=== PATIENT | female | born 1970 | race Caucasian/White ===

== ENCOUNTER 2021-05-19 18:39 | Emergency (ER) | payer OTHER, SELFPAY ==
--- NOTE | ~2021-05-19 | XR_ITS ---
EXAMINATION: XR knee LT min 4V EXAM DATE: 05/19/2021 19:17 INDICATION: Missed Step 05/19/21. Ant Knee Pain Since. TECHNIQUE: Left knee frontal, crosstable lateral, orthogonal oblique projections for interpretation. Additional sunrise projection. FINDINGS: There is a small left knee joint effusion. There are no acute fractures identified. There i s moderate medial tibiofemoral compartment primary osteoarthritis, less at the other compartments. IMPRESSION: 1. Small left knee joint effusion. 2. Osteoarthritis Reviewed, dictated and finalized at location G.
--- NOTE | ~2021-05-19 | XR_ITS ---
EXAMINATION: XR ankle LT min 3V EXAM DATE: 05/19/2021 19:18 INDICATION: Missed Step 05/19/21. Rolled. Ant Pain. TECHNIQUE: Left ankle frontal, lateral and oblique projections obtained and reviewed. There is no pr ior study for comparison. FINDINGS: The left ankle mortise appears intact. There are no acute fractures or dislocations ident ified. There is no subcutaneous gas. The soft tissue is unremarkable. There are no radiopaque for eign bodies. IMPRESSION: 1. XR ankle LT min 3V exam without acute osseous findings. Reviewed, dictated and finalized at location G.
[2021-05-19 18:46] VITALS: BP 129/79; PULSE 90; RESP 20; TEMP 37.1; O2SAT 99
--- NOTE | 2021-05-19 18:56 | ED.LOWEXIN ---
HPI - Extremity Injury (Lower) General Chief Complaint: Extremity Injury, Lower Stated Complaint: left knee and foot injury Time Seen by Provider: 05/19/21 18:56 Source: patient, family and RN notes reviewed History of Present Illness HPI Narrative: Patient is a 50-year-old female who presents the urgent care with complaints of left knee and left ankle pain. 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 Patient states that she rolled the left ankle and left knee but does not believe she hit the ground. States that she has been icing, elevating and using Tylenol for her pain. Patient states that this is a Workmen's Comp. related injury. No other acute complaints. No acute distress noted. Patient aware of the plan of care. Some parts of this dictation were generated by voice recognition software and may contain typographical and/or grammatical inaccuracies. Related Data Home Medications Medication Instructions Recorded Confirmed cetirizine 10 mg PO DAILY 05/19/21 05/19/21 empagliflozin [Jardiance] 25 mg PO DAILY 05/19/21 05/19/21 glipizide 5 mg PO DAILY 05/19/21 05/19/21 hydrochlorothiazide 25 mg PO DAILY 05/19/21 05/19/21 lisinopril 10 mg PO DAILY 05/19/21 05/19/21 metformin 1,000 mg PO DAILY 05/19/21 05/19/21 pravastatin 40 mg PO DAILY 05/19/21 05/19/21 sitagliptin [Januvia] 100 mg PO DAILY 05/19/21 05/19/21 Allergies Allergy/AdvReac Type Severity Reaction Status Date / Time No Known Allergies Allergy Verified 05/19/21 19:03 Review of Systems Review of Systems: CONSTITUTIONAL: Denies fever, chills, or sweats. EYES: Denies visual changes, redness, or discharge. ENT: Denies rhinorrhea, congestion, sore throat, or otalgia. CARDIOVASCULAR: Denies chest pain, palpitations, or edema. RESPIRATORY: Denies cough or dyspnea. GASTROINTESTINAL: Denies abdominal pain, nausea, vomiting, or diarrhea. GENITOURINARY: Denies dysuria or hematuria. SKIN: Denies rash or itching. MUSCULOSKELETAL: Reports of left knee and left ankle pain NEUROLOGIC: Denies headache, numbness, or weakness. All other systems reviewed are negative, except as documented in HPI. PMFSH Comments At the time of my signature, I reviewed and agree with the nursing past medical, surgical, social, and family history. There is no relevant family history pertinent to the patient complaint. Exam Narrative: GENERAL: This is a well-nourished, well-developed patient, in no apparent distress. HEAD: normocephalic, atraumatic. EYES: PERRL. Sclera clear/white. Vision is grossly intact. EARS: External ears normal NOSE: External nose normal with no obvious nasal discharge, nares without redness, no rhinorrhea. THROAT: Mucous membranes moist NECK: Neck supple CARDIOVASCULAR: Regular rate and rhythm without murmurs, gallops, or rubs. RESPIRATORY: Clear to auscultation. Breath sounds equal bilaterally. No wheezes, rales, or rhonchi. SKIN: warm, intact with no suspicious lesions or rash, good texture and turgor. NEURO: awake, alert, and oriented to person, place and time. There were no obvious focal neurologic abnormalities. EXTREMITIES: Range of motion to left lower extremity within normal limits. No edema/ecchymosis or erythema noted to the left knee or left ankle. Mild tenderness to the anterior aspect of the left ankle. Mild point tenderness to the anterior left knee. No obvious dislocation or fractures. Positive strong left pedal pulse with capillary refill less than 2 seconds. Course Vital Signs Vital signs: Vital Signs Temperature 98.7 F 05/19/21 18:46 Pulse Rate 90 05/19/21 18:46 Respiratory Rate 20 05/19/21 18:46 Blood Pressure 129/79 05/19/21 18:46 Pulse Oximetry 99 05/19/21 18:46 Temperature 98.7 F 05/19/21 18:46 Pulse Rate 90 05/19/21 18:46 Respiratory Rate 20 05/19/21 18:46 Blood Pressure 129/79 05/19/21 18:46 Pulse Oximetry 99 05/19/21 18:46 Reviewe
== END 2021-05-19 19:51 | disposition home or self-care (01) ==
PROVIDERS: Emergency Provider Nurse Practitioner Family; PCP Nurse Practitioner Adult Health
DX: S83.92XA Sprain of unspecified site of left knee, initial encounter (principal); M25.462 Effusion, left knee; X50.0XXA Overexertion from strenuous movement or load, initial encounter
CPT/HCPCS: 73564; 73610; 99214; G0463

== ENCOUNTER 2022-06-14 12:28 | Emergency (ER) | payer OTHER, SELFPAY ==
[2022-06-14 12:32] VITALS: BP 126/84; PULSE 80; RESP 16; TEMP 36.7; O2SAT 98
--- NOTE | 2022-06-14 12:53 | ED.URI ---
HPI - URI/Sore Throat General Chief Complaint: Upper Respiratory Infection Stated Complaint: cough sore throat aches diarrhea Time Seen by Provider: 06/14/22 12:53 Source: patient, RN notes reviewed and old records reviewed Mode of arrival: ambulatory Limitations: no limitations History of Present Illness HPI Narrative: 51 year old female who presents to [facility] care with 3 day history of cough, sore throat, nasal congestion, post nasal drainage, body aches, nausea, slight cough, and initial diarrhea which has resolved she states. Patient reports that she has taken a home COVID test which was negative this morning.Patient reports that she got flu shot and tetanus update yesterday. Patient reports that she has been taking DayQuil, NyQuil and used Chloraseptic throat spray for her symptoms.Patient reports that she has been COVID vaccinated MD elicited complaint: cough and sore throat Pertinent past history: seasonal allergies Onset (ago): day(s) (3) Pain scale (0-10): 4 Treatments prior to arrival: other (Dayquil and Nyquil) Related Data Home Medications Medication Instructions Recorded Confirmed cetirizine 10 mg tablet 10 mg PO DAILY 05/19/21 06/14/22 empagliflozin 25 mg tablet 25 mg PO DAILY 05/19/21 06/14/22 (Jardiance) hydrochlorothiazide 25 mg tablet 25 mg PO DAILY 05/19/21 06/14/22 lisinopril 10 mg tablet 10 mg PO DAILY 05/19/21 06/14/22 metformin 1,000 mg tablet 1,000 mg PO DAILY 05/19/21 06/14/22 pravastatin 40 mg tablet 40 mg PO DAILY 05/19/21 06/14/22 diclofenac sodium 50 mg 50 mg PO BID 06/14/22 06/14/22 tablet,delayed release gabapentin 300 mg capsule 300 mg PO TID 06/14/22 06/14/22 levothyroxine 150 mcg tablet 150 mcg PO DAILY 06/14/22 06/14/22 Allergies Allergy/AdvReac Type Severity Reaction Status Date / Time No Known Allergies Allergy Verified 06/14/22 12:35 Review of Systems Review of Systems: CONSTITUTIONAL: Denies malaise, chills, sweats, or fever. EYES: Denies visual changes, redness, or discharge. ENT: Reports rhinorrhea, congestion, sinus pain, otalgia and sore throat. CARDIOVASCULAR: Denies chest pain, palpitations, or edema. RESPIRATORY: Reports cough.? Denies dyspnea. GASTROINTESTINAL: Denies abdominal pain,positive nausea,no vomiting, initial diarrhea which has resolved. SKIN: Denies rash or itching. MUSCULOSKELETAL: Denies myalgia. NEUROLOGIC: Denies headache. All systems reviewed & are unremarkable except as noted in HPI and below PMFSH Past Medical History Medical History (Updated 06/15/22 @ 00:00 by Graham Malloy) Diabetes Elevated cholesterol Hypertension Hypothyroid Social History Social History (Updated 06/17/22 @ 09:09 by Merle Hernandez NP) Smoking status: Former smoker Additional smoking assessment comments: quit 5 years ago before was occasional smoker Alcohol intake: current Alcohol use details: rare social Substance use type: does not use Living arrangements: with family Gender identity (if verbalized by the patient): Female Comments At time of signature, agree with nursing past medical, surgical, social and family history. There is no relevant family history pertinent to the presenting complaint Exam Narrative: GENERAL: Well-appearing, well-nourished, and in no acute distress. HEAD: Normocephalic EYES: PERRLA, conjunctivae clear ENT: Nares clear, turbinates edematous and erythematous, clear discharge. Mucous membranes moist. TM pearly guevara with dull light reflex bilaterally; no tragal tenderness. Oropharynx erythematous without lesions. Tonsils not enlarged and without exudate, no drooling, no hoarseness, no trismus, uvula midline. NECK: Supple. No lymphadenopathy CHEST: Clear to auscultation, breath sounds equal. No wheezing, rhonchi, rales, or stridor. No respiratory distress, speaks in full sentences.SAO2 98% on room air HEART: Regular rate and rhythm. No murmur heard. ABDOMEN, soft and nontender to palpation, no
[2022-06-14 12:54] VITALS: BP 126/84; PULSE 80; RESP 16; TEMP 36.7; O2SAT 98
[2022-06-15 00:33] LABS: SARS-CoV-2 RNA PCR Negative
== END 2022-06-14 13:15 | disposition home or self-care (01) ==
PROVIDERS: Emergency Provider Registered Nurse; PCP Nurse Practitioner Family
DX: J06.9 Acute upper respiratory infection, unspecified (principal); B34.9 Viral infection, unspecified; Z20.822 Contact with and (suspected) exposure to COVID-19; Z87.891 Personal history of nicotine dependence; E11.9 Type 2 diabetes mellitus without complications; E78.00 Pure hypercholesterolemia, unspecified; I10 Essential (primary) hypertension; E03.9 Hypothyroidism, unspecified
CPT/HCPCS: 87081; 87804; 87880; 99213; C9803; G0463; U0003; U0005

== ENCOUNTER 2022-07-20 11:40 | Emergency (ER) | payer OTHER, SELFPAY ==
[2022-07-20 11:45] VITALS: BP 127/77; PULSE 83; RESP 16; TEMP 36.2; O2SAT 99
--- NOTE | 2022-07-20 12:19 | ED.NAVMDI ---
HPI - Nausea/Vomiting/Diarrhea General Chief complaint: Nausea/Vomiting/Diarrhea Stated complaint: nausea diarrhea fever Time Seen by Provider: 07/20/22 12:20 Source: patient and RN notes reviewed Mode of arrival: ambulatory Limitations: no limitations History of Present Illness HPI Narrative: 51-year-old female presented for complaint of nausea, vomiting, diarrhea for 5 days. She endorses abdominal cramping And decreased appetite. She denies fever, shortness of breath, chest pain or palpitations. She denies sick contacts. She has been able to keep food down intermittently. Endorses 1-2 episodes of vomiting and diarrhea per day. Endorses vomiting undigested food. Denies hematemesis endorses liquid stools with occasional mild blood in stool. Last episode of emesis yesterday morning, last episode of diarrhea last night. Has not eaten anything today.Taking Pepto for symptoms. Related Data Home Medications Medication Instructions Recorded Confirmed cetirizine 10 mg tablet 10 mg PO DAILY 05/19/21 07/20/22 empagliflozin 25 mg tablet 25 mg PO DAILY 05/19/21 07/20/22 (Jardiance) hydrochlorothiazide 25 mg tablet 25 mg PO DAILY 05/19/21 07/20/22 lisinopril 10 mg tablet 10 mg PO DAILY 05/19/21 07/20/22 metformin 1,000 mg tablet 1,000 mg PO DAILY 05/19/21 07/20/22 pravastatin 40 mg tablet 40 mg PO DAILY 05/19/21 07/20/22 diclofenac sodium 50 mg 50 mg PO BID 06/14/22 07/20/22 tablet,delayed release gabapentin 300 mg capsule 300 mg PO TID 06/14/22 07/20/22 levothyroxine 150 mcg tablet 150 mcg PO DAILY 06/14/22 07/20/22 Allergies Allergy/AdvReac Type Severity Reaction Status Date / Time No Known Allergies Allergy Verified 07/20/22 12:31 Review of Systems Review of Systems: CONSTITUTIONAL: Denies body aches, fever, chills ENT: Denies rhinorrhea, congestion CARDIOVASCULAR: Denies chest pain, palpitations, or edema. RESPIRATORY: Denies cough or dyspnea. GASTROINTESTINAL: Endorses abdominal cramping, nausea, vomiting, diarrhea. Denies hematemesis GENITOURINARY: Denies dysuria, hematuria, or CVA tenderness. SKIN: Denies rash, itching, or wounds. MUSCULOSKELETAL: Denies back pain, joint pain, or myalgia. NEUROLOGIC: Denies headache, numbness, tingling, or weakness. All systems reviewed & are unremarkable except as noted in HPI and below PMFSH Past Medical History Medical History Diabetes Elevated cholesterol Hypertension Hypothyroid Social History Social History Smoking status: Former smoker Additional smoking assessment comments: quit 5 years ago before was occasional smoker Alcohol intake: current Alcohol use details: rare social Substance use type: does not use Gender identity (if verbalized by the patient): Female Comments At time of signature, I have reviewed and agree with nursing past medical, surgical, social and family history unless otherwise noted. Please see nursing chart for further information. There is no relevant family history pertinent to the presenting complaint Exam Narrative: GENERAL: Well-appearing, EYES: EOMI. Conjunctivae normal. ENT: Mucous membranes pink and moist. CHEST: No respiratory distress. Clear to auscultation. HEART: Regular rate and rhythm. No murmur appreciated. Normal peripheral pulses. ABDOMEN: abd soft, nondistended, normal active bowel sounds. Mild Tender abdomen to LLQ; No guarding, rebound tenderness, asymmetry EXTREMITIES: Normal range of motion. No edema. SKIN: Warm, dry, no rash. Capillary refill normal. Normal skin turgor. NEURO: No focal deficits. Alert and oriented x3. PSYCH: Normal affect. Course Course Emergency Course: Patient is aware of diagnosis, understands and agrees to treatment plan. Anticipatory guidance given. Patient agrees to follow-up as directed and is aware of reasons to seek care at the emergency depar
== END 2022-07-20 12:35 | disposition home or self-care (01) ==
PROVIDERS: Emergency Provider Nurse Practitioner Family; PCP Nurse Practitioner Family
DX: R11.2 Nausea with vomiting, unspecified (principal); R19.7 Diarrhea, unspecified; E11.9 Type 2 diabetes mellitus without complications; E78.00 Pure hypercholesterolemia, unspecified; I10 Essential (primary) hypertension; E03.9 Hypothyroidism, unspecified; Z87.891 Personal history of nicotine dependence
CPT/HCPCS: 99213; G0463

== ENCOUNTER 2022-09-21 10:04 | Emergency (ER) | payer OTHER, SELFPAY ==
[2022-09-21 10:08] VITALS: BP 137/79; PULSE 82; RESP 20; TEMP 36.8; O2SAT 98
--- NOTE | 2022-09-21 10:14 | ED.HA ---
HPI - Headache General Chief Complaint: Headache Stated Complaint: headache / nausea Time Seen by Provider: 09/21/22 10:14 Source: patient and RN notes reviewed History of Present Illness HPI Narrative: patient is a 52-year-old female presents to urgent care with complaints of headache, nausea, cough. 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 Patient has been taking Tylenol for the headache and states that it does help. Patient reports a frontal headache and is not the worst headache she has experienced. Denies any vomiting. No other acute complaints. No acute distress noted. Patient aware of the plan of care. Some parts of this dictation were generated by voice recognition software and may contain typographical and/or grammatical inaccuracies. Related Data Home Medications Medication Instructions Recorded Confirmed cetirizine 10 mg tablet 10 mg PO DAILY 05/19/21 09/21/22 empagliflozin 25 mg tablet 25 mg PO DAILY 05/19/21 09/21/22 (Jardiance) hydrochlorothiazide 25 mg tablet 25 mg PO DAILY 05/19/21 09/21/22 lisinopril 10 mg tablet 10 mg PO DAILY 05/19/21 09/21/22 metformin 1,000 mg tablet 1,000 mg PO DAILY 05/19/21 09/21/22 pravastatin 40 mg tablet 40 mg PO DAILY 05/19/21 09/21/22 diclofenac sodium 50 mg 50 mg PO BID 06/14/22 09/21/22 tablet,delayed release gabapentin 300 mg capsule 300 mg PO TID 06/14/22 09/21/22 levothyroxine 150 mcg tablet 150 mcg PO DAILY 06/14/22 09/21/22 Allergies Allergy/AdvReac Type Severity Reaction Status Date / Time No Known Allergies Allergy Verified 09/21/22 10:17 Review of Systems Review of Systems: CONSTITUTIONAL: reports chills EYES: Denies visual changes, redness, or discharge. ENT: Denies rhinorrhea, congestion, sore throat, or otalgia. CARDIOVASCULAR: Denies chest pain, palpitations, or edema. RESPIRATORY: reports of cough without dyspnea GASTROINTESTINAL: Denies abdominal pain, nausea, vomiting, or diarrhea. GENITOURINARY: Denies dysuria or hematuria. SKIN: Denies rash or itching. MUSCULOSKELETAL: Denies back pain, joint pain. reports body aches NEUROLOGIC: reports of headache All other systems reviewed are negative, except as documented in HPI. [facility] Past Medical History Medical History Diabetes Elevated cholesterol Hypertension Hypothyroid Social History Social History Smoking status: Former smoker Additional smoking assessment comments: quit 5 years ago before was occasional smoker Alcohol intake: current Alcohol use details: rare social Substance use type: does not use Gender identity (if verbalized by the patient): Female Comments At the time of my signature, I reviewed and agree with the nursing past medical, surgical, social, and family history. There is no relevant family history pertinent to the patient complaint. Exam Narrative: GENERAL: This is a well-nourished, well-developed patient, in no apparent distress. HEAD: normocephalic, atraumatic. EYES: PERRL. Sclera clear/white. Vision is grossly intact. EARS: External ears normal, auditory canals clear and without drainage, TMs normal without perforation. Hearing grossly intact. NOSE: External nose normal with no obvious nasal discharge, nares without redness, no rhinorrhea. THROAT: Mucous membranes moist, posterior pharynx clear. mild postnasal drainage NECK: Neck supple, non-tender without lymphadenopathy CARDIOVASCULAR: Regular rate and rhythm RESPIRATORY: Clear to auscultation. Breath sounds equal bilaterally. No wheezes, rales, or rhonchi. GASTROINTESTINAL: Abdomen soft, non-tender, nondistended. Bowel sounds are active. SKIN: warm, intact with no suspicious lesions or rash, good texture and turgor. NEURO: awake, alert, and oriented to person, place and time. There were no obvious
== END 2022-09-21 10:52 | disposition home or self-care (01) ==
PROVIDERS: Emergency Provider Nurse Practitioner Family; PCP Nurse Practitioner Family
DX: B34.9 Viral infection, unspecified (principal); Z87.891 Personal history of nicotine dependence; E11.9 Type 2 diabetes mellitus without complications; E78.00 Pure hypercholesterolemia, unspecified; I10 Essential (primary) hypertension; E03.9 Hypothyroidism, unspecified; Z79.84 Long term (current) use of oral hypoglycemic drugs
CPT/HCPCS: 87804; 99213; G0463

== ENCOUNTER 2023-07-30 11:03 | Emergency (ER) | payer BC, SELFPAY ==
--- NOTE | 2023-07-30 11:09 | ED.WOUNDLAC ---
HPI - Wound/Laceration General Chief Complaint: Wound/Laceration Stated Complaint: Fall Injury/Laceration to Lip Time Seen by Provider: 07/30/23 11:28 Source: patient and RN notes reviewed Mode of arrival: ambulatory Limitations: no limitations History of Present Illness HPI narrative: 52-year-old female presents concern for an injury to her lower lip. Reports earlier today she fell and sustained a small injury to her lower lip that was bleeding. Reports she was unable to get it to stop bleeding. She reports the injury happened 2 hours prior to arrival. She reports she takes aspirin. She denies any other injury or trauma. Related Data Home Medications Medication Instructions Recorded Confirmed cetirizine 10 mg tablet 10 mg PO DAILY 05/19/21 09/21/22 empagliflozin 25 mg tablet 25 mg PO DAILY 05/19/21 09/21/22 (Jardiance) hydrochlorothiazide 25 mg tablet 25 mg PO DAILY 05/19/21 09/21/22 lisinopril 10 mg tablet 10 mg PO DAILY 05/19/21 09/21/22 metformin 1,000 mg tablet 1,000 mg PO DAILY 05/19/21 09/21/22 pravastatin 40 mg tablet 40 mg PO DAILY 05/19/21 09/21/22 diclofenac sodium 50 mg 50 mg PO BID 06/14/22 09/21/22 tablet,delayed release gabapentin 300 mg capsule 300 mg PO TID 06/14/22 09/21/22 levothyroxine 150 mcg tablet 150 mcg PO DAILY 06/14/22 09/21/22 Allergies Allergy/AdvReac Type Severity Reaction Status Date / Time No Known Allergies Allergy Verified 09/21/22 10:17 Review of Systems Review of Systems: CONSTITUTIONAL: Denies malaise, chills, sweats, or fever. SKIN: Reports bleeding injury to her lower lip MUSCULOSKELETAL: Denies muscle skeletal pain NEUROLOGIC: Denies numbness, weakness All systems reviewed & are unremarkable except as noted in HPI and below PMFSH Past Medical History Medical History Diabetes Elevated cholesterol Hypertension Hypothyroid Social History Social History Smoking status: Former smoker Additional smoking assessment comments: quit 5 years ago before was occasional smoker Alcohol intake: current Alcohol use details: rare social Substance use type: does not use Living arrangements: with family Gender identity (if verbalized by the patient): Female Comments At time of signature, agree with nursing past medical, surgical, social and family history. There is no relevant family history pertinent to the presenting complaint Exam Narrative: GENERAL: Well-appearing, well-nourished, and in no acute distress. HEAD: Normocephalic, atraumatic. EYES: PERRLA, conjunctivae clear, and EOMI. ENT: Mucous membranes moist. Oropharynx without edema, erythema or lesions. NECK: Supple. No lymphadenopathy CHEST: Clear to auscultation. No respiratory distress. HEART: Regular rate and rhythm. SKIN: Warm, dry. Barely visible disruption in the skin of the lower lip with small by continuous amount of bleeding. No other injury noted to the lip, inner lip, face, mouth NEURO: Alert and oriented x3. PSYCH: Normal mood and affect Course Course Emergency Course: Let gel and pressure used initially without hemostasis. Hemostasis achieved with silver nitrate stick. Patient is aware of diagnosis, understands and agrees to treatment plan. Anticipatory guidance given. Patient agrees to follow-up as directed and is aware of reasons to seek care at the emergency department. Portions of this record may have been created with voice recognition software Level of Care: Express Care Visit Vital Signs Vital signs: Reviewed. MDM - Wound/Laceration MDM Narrative Medical decision making narrative: Exam findings show no acute concerns or changes; patient is non-toxic appearing and is in no distress. Patient is appropriate for outpatient treatment and follow-up. Differential Diagnosis Differential diagnosis: Likely laceration, abrasion and avulsion of skin Critica
[2023-07-30 11:11] VITALS: BP 156/108; PULSE 90; RESP 20; TEMP 36.3; O2SAT 96
[2023-07-30] MEDS: LIDOCAINE, EPINEPHRINE, TETRACAINE VISCOUS SOLN 3 ML TOPICAL (11:34)
== END 2023-07-30 12:08 | disposition home or self-care (01) ==
PROVIDERS: Emergency Provider Nurse Practitioner; PCP Nurse Practitioner Family
DX: S09.93XA Unspecified injury of face, initial encounter (principal); W19.XXXA Unspecified fall, initial encounter; E11.9 Type 2 diabetes mellitus without complications; I10 Essential (primary) hypertension; E03.9 Hypothyroidism, unspecified; Z87.891 Personal history of nicotine dependence
CPT/HCPCS: 12011; 99213; G0463

== ENCOUNTER 2023-10-12 09:28 | Emergency (ER) | payer BC, SELFPAY ==
[2023-10-12 09:38] VITALS: BP 154/97; PULSE 83; RESP 16; TEMP 36.7; O2SAT 98
[2023-10-12 09:41] VITALS: BP 154/97; PULSE 83; RESP 16; TEMP 36.7; O2SAT 98
--- NOTE | 2023-10-12 09:53 | ED.URI ---
HPI - URI/Sore Throat General Chief Complaint: Upper Respiratory Infection Stated Complaint: Nausea/Headache/Body Aches History of Present Illness HPI Narrative: 53 y/o female with hx HTN and DM presented for c/o nasal congestion, headache, nausea and body aches. Onset yesterday. Subjective fever yesterday. Taking Tylenol. States she is not able to return to work without testing. Denies sob, wheezing, vomiting, diarrhea or lethargy. Related Data Home Medications Medication Instructions Recorded Confirmed cetirizine 10 mg tablet 10 mg PO DAILY 05/19/21 09/21/22 empagliflozin 25 mg tablet 25 mg PO DAILY 05/19/21 09/21/22 (Jardiance) hydrochlorothiazide 25 mg tablet 25 mg PO DAILY 05/19/21 09/21/22 lisinopril 10 mg tablet 10 mg PO DAILY 05/19/21 09/21/22 metformin 1,000 mg tablet 1,000 mg PO DAILY 05/19/21 09/21/22 pravastatin 40 mg tablet 40 mg PO DAILY 05/19/21 09/21/22 diclofenac sodium 50 mg 50 mg PO BID 06/14/22 09/21/22 tablet,delayed release gabapentin 300 mg capsule 300 mg PO TID 06/14/22 09/21/22 levothyroxine 150 mcg tablet 150 mcg PO DAILY 06/14/22 09/21/22 semaglutide 7 mg tablet (Rybelsus) mg PO 10/12/23 Allergies Allergy/AdvReac Type Severity Reaction Status Date / Time No Known Allergies Allergy Verified 09/21/22 10:17 Review of Systems Review of Systems: CONSTITUTIONAL: reports body aches, fever EYES: Denies visual changes, redness, or discharge. ENT: reports rhinorrhea, congestion denies sore throat, otaligia CARDIOVASCULAR: Denies chest pain, palpitations, or edema. RESPIRATORY: Denies dyspnea. GASTROINTESTINAL: Denies abdominal pain, nausea, vomiting, or diarrhea. SKIN: Denies rash, itching, or wounds. MUSCULOSKELETAL: Denies back pain, joint pain, reports myalgia. [facility] Past Medical History Medical History Diabetes Elevated cholesterol Hypertension Hypothyroid Social History Social History Smoking status: Former smoker Additional smoking assessment comments: quit 5 years ago before was occasional smoker Alcohol intake: current Alcohol use details: rare social Substance use type: does not use Living arrangements: with family Gender identity (if verbalized by the patient): Female Exam Narrative: GENERAL: well-appearing, no acute distress. EYES: conjunctivae clear ENT: Mucous membranes moist. TMs unable to visualize due to excess cerumen bilaterally; no tragal tenderness. Oropharynx not erythematous without lesions. Tonsils not enlarged and without exudate. No drooling, no hoarseness, no trismus, uvula midline. No tripod positioning, hot potato voice, or soft palate swelling. NECK: Supple. No lymphadenopathy CHEST: Clear to auscultation, breath sounds equal. No respiratory distress, speaks in full sentences. HEART: Regular rate and rhythm. No murmur heard. SKIN: Warm, dry, no rash. NEURO: Alert and oriented x3. Course Course Emergency Course: Patient is aware of diagnosis, understands and agrees to treatment plan. Anticipatory guidance given. Patient agrees to follow-up as directed and is aware of reasons to seek care at the emergency department. Portions of this record may have been created with voice recognition software Level of Care: Express Care Visit Vital Signs Vital signs: Vital Signs Temperature 98.1 F 10/12/23 09:38 Pulse Rate 83 10/12/23 09:38 Respiratory Rate 16 10/12/23 09:38 Blood Pressure 154/97 H 10/12/23 09:38 Pulse Oximetry 98 10/12/23 09:38 Oxygen Delivery Room Air 10/12/23 09:38 Temperature 98.1 F 10/12/23 09:41 Pulse Rate 83 10/12/23 09:41 Respiratory Rate 16 10/12/23 09:41 Blood Pressure 154/97 H 10/12/23 09:41 Pulse Oximetry 98 10/12/23 09:41 Oxygen Delivery Room Air 10/12/23 09:41 MDM - URI/Sore Throat MDM Narrative Medical decision making narrative: n
== END 2023-10-12 10:29 | disposition home or self-care (01) ==
PROVIDERS: Emergency Provider Nurse Practitioner Family; PCP Nurse Practitioner Family
DX: J06.9 Acute upper respiratory infection, unspecified (principal); Z20.822 Contact with and (suspected) exposure to COVID-19; Z87.891 Personal history of nicotine dependence; E11.9 Type 2 diabetes mellitus without complications; E78.00 Pure hypercholesterolemia, unspecified; I10 Essential (primary) hypertension; E03.9 Hypothyroidism, unspecified
CPT/HCPCS: 87426; 87804; 99213; G0463